=== PATIENT | male | born 1985 | race Caucasian/White ===

== ENCOUNTER → 2025-02-10 10:40 | Outpatient (BNVA) | payer OTHER, SELFPAY | PROVIDERS: Family Provider Nurse Practitioner; PCP Internal Medicine; Referring Provider Family Medicine; Visit Provider Specialist | DX: G56.03 Carpal tunnel syndrome, bilateral upper limbs (principal) | CPT/HCPCS: 73110; 99204 ==

== ENCOUNTER 2025-03-01 12:42 | Outpatient (CLI) | payer OTHER, SELFPAY ==
--- NOTE | 2025-03-01 13:00 | MR_ITS ---
WS: [id number] MRI LEFT WRIST WITHOUT CONTRAST. COMPARISON: Radiograph 02/10/2025 Multiplanar, multisequence imaging is performed without contrast. No acute fractures or marrow edema. Normal alignment of the distal radial ulnar joint. There is no fluid in the distal radioulnar joint. Moderate narrowing of the radiocarpal articulation. Intermediate high signal involving a large portion of the TFCC. The greatest signal is near the peripheral ulnar attachment. Signal abnormality extends into the extensor carpi ulnaris tendon. There is thickening of the tendon at the level of the abnormal TFCC. There is a small amount of adjacent fluid. Very slight increased signal in the scapholunate interval. Carpal rows are normal. Seen best on the sagittal image is an osseous density measuring 3.8 mm closely associated with the dorsal lunate. This is a well served circumscribed fragment. MR/MR wrist LT wo con* [id number] IMPRESSION: 1. No acute fractures or marrow edema. 2. 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 3. Abnormal signal in the TFCC towards the ulnar attachment. Consistent with a peripheral tear. No fluid in the distal radial ulnar joint. 4. There is also associated marked thickening and tendinopathy in the extensor carpi ulnaris tendon at the level of the TFCC tear. 5. Small well-corticated osseous density along the dorsal wrist at the level o f the lunate. This may be from an old avulsion injury from the lunate or the di stal radius.
--- NOTE | 2025-03-01 13:45 | MR_ITS ---
WS: [id number] MRI RIGHT WRIST WITHOUT CONTRAST. COMPARISON: Radiographs 02/10/2025 Multiplanar, multisequence imaging is performed without contrast. No acute fractures or marrow edema. No ulnar variance. Mild narrowing of the distal radial carpal joint space. The scapholunate ligament and interval appear appropriate. There is a small amount of increased T2 signal in the peripheral TFCC but no definite tear is identified. There is no fluid in the radial ulnar articulation. The extensor carpi ulnaris tendon is normal signal and caliber. Carpal rows are normal. No muscle or soft tissue edema. MR/MR wrist RT wo con* [id number] IMPRESSION: 1. No fractures or marrow edema. 2. Mild narrowing of the distal radiocarpal joint. 3. Some increased signal in the peripheral TFCC but no tear identified. There is no fluid in the distal radial ulnar joint. 4. Adjacent extensor carpi ulnaris tendon is normal.
== END 2025-03-01 12:43 | disposition home or self-care (01) ==
LOC: RAD 12:44
PROVIDERS: PCP Specialist; Visit Provider Specialist
DX: M25.831 Other specified joint disorders, right wrist (principal); M25.832 Other specified joint disorders, left wrist; M67.834 Other specified disorders of tendon, left wrist; R93.6 Abnormal findings on diagnostic imaging of limbs; M12.832 Other specific arthropathies, not elsewhere classified, left wrist; M89.8X8 Other specified disorders of bone, other site
CPT/HCPCS: 73221

== ENCOUNTER → 2025-03-03 08:59 | Outpatient (BNVA) | payer OTHER, SELFPAY | PROVIDERS: PCP Specialist; Visit Provider Specialist | DX: S63.592A Other specified sprain of left wrist, initial encounter (principal); M25.531 Pain in right wrist; X58.XXXA Exposure to other specified factors, initial encounter | CPT/HCPCS: 99214 ==